=== PATIENT | female | born 1955 ===

== ENCOUNTER → 2022-09-26 15:16 | Outpatient (BNVA) | payer MEDICARE, SELFPAY | PROVIDERS: PCP Internal Medicine; Visit Provider Student in an Organized Health Care Education/Training Program | DX: M70.61 Trochanteric bursitis, right hip (principal); M70.62 Trochanteric bursitis, left hip; M12.811 Other specific arthropathies, not elsewhere classified, right shoulder | CPT/HCPCS: 99202 ==